=== PATIENT | male | born 1950 | race Caucasian/White ===

== ENCOUNTER 2019-05-20 01:30 | Emergency (ER) | payer MEDICARE, BC ==
--- NOTE | 2019-05-20 01:32 | ER Report ---
History and Physical Time Seen By MD: 01:28 HPI/ROS CHIEF COMPLAINT: Chest tightness, mild shortness of breath HISTORY OF PRESENT ILLNESS: 68-year-old male visiting from [place]. He [place] he's been here for 5 weeks. He has a history of paroxysmal atrial fibrillation. He was [place] in [place] today. Tonight after history drinks. He went into atrial fibrillation. Just before 9 PM. Patient does have a history of atrial fibrillation and cardioversion. Patient takes no blood thinners. REVIEW OF SYSTEMS: Respiratory: No cough, no dyspnea. Cardiovascular: No chest pain, no palpitations. Gastrointestinal: No vomiting, no abdominal pain. Musculoskeletal: No back pain. Allergies: Coded Allergies: No Known Drug Allergies (Unverified , 05/20/19) Home Meds Reported Medications Aspirin (ASPIRIN) 325 Mg Tablet, 325 MG PO Q4-6H PRN for CHEST PAIN, TAB 05/20/19 Metoprolol Succinate (METOPROLOL SUCCINATE) 25 Mg Tab.er.24h, 1 TAB PO QDAY, TAB 05/20/19 Reviewed Nurses Notes: Yes Old Medical Records Reviewed: Yes Constitutional Vital Sign - Last 24 Hours 05/20/19 05/20/19 05/20/19 05/20/19 01:30 01:30 01:31 01:31 Pulse ? B/P (MAP) 88/78 (81) 88/78 (81) 05/20/19 05/20/19 05/20/19 05/20/19 01:33 01:34 01:34 01:35 Temp 97.9 Pulse 124 87 Resp 20 12 B/P (MAP) 88/78 99/70 (80) 99/70 (80) Pulse Ox 89 91 O2 Delivery Room Air 05/20/19 05/20/19 05/20/19 05/20/19 01:40 01:45 01:45 01:50 Pulse 107 133 Resp 7 15 B/P (MAP) 95/69 (78) 95/69 (78) Pulse Ox 91 05/20/19 05/20/19 05/20/19 05/20/19 01:55 02:00 02:00 02:01 Pulse 91 99 99 Resp 7 14 14 B/P (MAP) 56/47 (50) 56/47 (50) 96/71 (79) Pulse Ox 91 90 90 7/19/19 7/19/19 7/19/19 7/19/19 02:01 02:05 02:10 02:17 Pulse 100 110 Resp 16 11 B/P (MAP) 96/71 (79) 109/70 (83) Pulse Ox 88 90 05/20/19 05/20/19/05/20/19 02:17 02:20 02:25 02:25 Pulse 97 83 Resp 27 7 B/P (MAP) 109/70 (83) 111/80 (90) 111/80 (90) Pulse Ox 91 94 05/20/19 05/20/19 05/20/19 05/20/19 02:27 02:30 02:30 02:31 Pulse 66 66 Resp 20 20 B/P (MAP) 88/65 (73) 88/65 (73) 86/73 (77) Pulse Ox 97 97 O2 Flow Rate 5.0 05/20/19 05/20/19 05/20/19 05/20/19 02:31 02:35 02:35 02:40 Pulse 65 63 Resp 9 12 B/P (MAP) 86/73 (77) 96/68 (77) 96/68 (77) 94/67 (76) Pulse Ox 93 95 05/20/19 05/20/19 05/20/19 05/20/19 02:40 02:45 02:45 02:50 Pulse 60 Resp 11 B/P (MAP) 94/67 (76) 95/69 (78) 95/69 (78) 94/69 (77) Pulse Ox 96 05/20/19 05/20/19 05/20/19 05/20/19 02:50 02:55 02:55 03:00 Pulse 60 59 60 Resp 27 28 24 B/P (MAP) 94/69 (77) 95/69 (78) 95/69 (78) 97/75 (82) Pulse Ox 95 95 97 05/20/19 05/20/19 05/20/19 05/20/19 03:00 03:05 03:05 03:10 Pulse 60 59 Resp 24 28 B/P (MAP) 97/75 (82) 96/71 (79) 96/71 (79) 99/73 (82) Pulse Ox 97 91 7/19/19 05/20/19 05/20/19 05/20/19 03:10 03:15 03:15 03:20 Pulse 63 58 Resp 26 26 B/P (MAP) 99/73 (82) 97/71 (80) 97/71 (80) 96/69 (78) Pulse Ox 94 87 05/20/19 05/20/19 05/20/19 03:20 03:25 03:25 Pulse 59 Resp 9 B/P (MAP) 96/69 (78) 103/74 (84) 103/74 (84) Pulse Ox 90 Physical Exam General Appearance: The patient is alert, has no immediate need for airway protection and no current signs of toxicity. Vital signs stable, borderline hypotension, pulse ox normal, tachycardia to the 140s, rhythm strip shows a irregular rhythm consistent with fibrillation HEENT: Pupils equal and round no injection. Oropharynx without redness or exudate Respiratory: Chest is non tender, lungs are clear to auscultation. No chest wall tenderness, wheezing or rails Cardiac: irregular rate and rhythm , no murmur Gastrointestinal: Abdomen is soft and non tender, no masses, bowel sounds normal. Musculoskeletal: Neck: Neck is supple and non tender. Extremities have full range of motion and are non tender. Skin: No rashes or lesions. DIFFERENTIAL DIAGNOSIS: After history and physical exam differential diagnosis was considered for chest pain including but not limited to myocardial ischemia, pericarditis pulmonary embolus, chest wall pain, pleural inflammation and pulmonary infectious causes. Medical Decision Making Data Points Result Diagram: 05/20/19 0135 05/20/19 0135 Laboratory Hematology Test 05/20/19 01:35 White Blood Count 6.5 k/uL (4.5-11.0) Red Blood Count 4.68 M/uL (4.00-5.60) Hemoglobin 14.6 g/dL (14.0-18.0) Hematocrit 43.2 % (42.0-52.0) Mean Corpuscular Volume 92.4 fL (80.0-96.0) Mean Corpuscular Hemoglobin 31.2 pg (26.0-33.0) Mean Corpuscular Hemoglobin Concent 33.7 g/dL (32.0-36.0) Red Cell Distribution Width 13.4 % (11.5-14.5) Platelet Count 348 K/uL (150-450) Mean Platelet Volume 7.6 fL (7.2-11.1) Neutrophils (%) (Auto) 54.3 % (39.4-72.5) Lymphocytes (%) (Auto) 31.6 % (17.6-49.6) Monocytes (%) (Auto) 10.0 % (4.1-12.4) Eosinophils (%) (Auto) 3.1 % (0.4-6.7) Basophils (%) (Auto) 1.0 % (0.3-1.4) Nucleated RBC Relative Count (auto) 0.0 /100WBC Neutrophils # (Auto) 3.5 K/uL (2.0-7.4) Lymphocytes # (Auto) 2.1 K/uL (1.3-3.6) Monocytes # (Auto) 0.7 K/uL (0.3-1.0) Eosinophils # (Auto) 0.2 K/uL (0.0-0.5) Basophils # (Auto) 0.1 K/uL (0.0-0.1) Nucleated RBC Absolute Count (auto) 0.00 K/uL Chemistry Test 05/20/19 01:35 Sodium Level 136 mmol/L (137-145) Potassium Level 4.0 mmol/L (3.5-5.0) Chloride Level 104 mmol/L (98-107) Carbon Dioxide Level 24 mmol/L (22-30) Blood Urea Nitrogen 34 mg/dl (9-21) Creatinine 1.10 mg/dl (0.66-1.25) Glomerular Filtration Rate Calc > 60.0 Random Glucose 113 mg/dl (75-110) Calcium Level 9.7 mg/dl (8.4-10.2) Total Bilirubin 0.3 mg/dl (0.2-1.3) Aspartate Amino Transf (AST/SGOT) 29 U/L (0-35) Alanine Aminotransferase (ALT/SGPT) 46 U/L (0-56) Alkaline Phosphatase 73 U/L (0-126) Troponin I < 0.012 ng/ml B-Type Natriuretic Peptide 181 pg/ml (0-100) Total Protein 7.1 g/dl (6.3-8.2) Albumin 4.2 g/dl (3.5-5.0) EKG/Imaging EKG Interpretation 12 lead EK 137 Rhythm: Atrial fibrillation rate 1:30 Gepp: normal QRS: Right bundle branch block pattern ST segments: normal, no old EKGs for comparison 12 lead EK Rhythm: Normal sinus rhythm with 65 bpm Gepp: normal QRS: Right bundle branch block pattern persist ST segments: normal Imaging X-ray: Single view portable chest x-ray was obtained. I viewed the images myself on the PACS system. My interpretation of the images is: Elevation of the right hemidiaphragm, otherwise no infiltrate or effusion, no old chest x-rays for comparison. The radiologist interpretation had no clinically significant variation from this interpretation. ED Course/Re-evaluation Clinical Indication for ER IV: Hydration, IV Access ED Course Patient was admitted to an examination room. H&P was done. The differential diagnosis was considered. On clinical Procedure: Procedural sedation. A pre-sedation evaluation was completed on the patient at 0220. Patient is an appropriate candidate for procedural sedation. The risks of the sedation were discussed with the patient. A time out was completed. The patient was reevaluated immediately prior to initiation of sedation. The patient was sedated with propofol 100 mg. The patient was monitored with continuous pulse oximetry and drug clerk. There were no complications and no significant hypoxemia. I remained at the bedside for the sedation. The total time I spent in the procedural sedation was 20 minutes. Post sedation evaluation: Patient was alert and cooperative, hemodynamically stable with appropriate respiratory status, temperature and pain control without ongoing nausea and vomiting. Procedure: Elective electrical cardioversion. The patient was electively electrically cardioverted for atrial fibrillation. The patient was on a continuous canvas repairer, with airway equipment at the bedside. The patient was on continuous pulse oximetry. The cardioversion was attempted with 50 joules biphasic current. The cardioversion was successful. The patient tolerated the procedure well with no complications. The procedure was performed by myself. Decision to Disposition Date: May 20, 2019 Decision to Disposition Time: 02:48 Depart Departure Latest Vital Signs Vital Signs Date Time Temp Pulse Resp B/P (MAP) Pulse Ox O2 Delivery O2 Flow Rate FiO2 05/20/19 03:25 59 9 103/74 (84) 90 05/20/19 02:27 5.0 05/20/19 01:33 97.9 Room Air Impression: Primary Impression: Atrial fibrillation Additional Impressions: Hypotension Chest tightness Atrial fibrillation status post cardioversion Condition: Improved Disposition: HOME OR SELF-CARE Patient Instructions: A-fib (Atrial Fibrillation) (ED) Additional Instructions: Follow-up with your primary care doctor, returning home to [place] Problem Qualifiers Primary Impression: Atrial fibrillation Atrial fibrillation type: paroxysmal Qualified Codes: I48.0 - Paroxysmal atrial fibrillation Additional Impressions: Hypotension Hypotension type: unspecified hypotension type Qualified Codes: I95.9 - Hypotension, unspecified JARAD DEL CID DO May 20, 2019 01:32
[2019-05-20] MEDS ORDERED: ASPIRIN 81 MG CHEW PO ONE (01:40)
[2019-05-20] MEDS ORDERED: ASPI-757 PO (01:45)
[2019-05-20] MEDS ORDERED: METO25TA23 PO (01:45)
[2019-05-20] MEDS ORDERED: DILTIAZEM 5 MG/ML 5ML IVPUSH IVP ONE ×2 (01:50→02:10)
[2019-05-20] MEDS ORDERED: NS(*) 0.9% 1000 ML BAG 1,000 ML IV ONE (01:50)
[2019-05-20 01:54] LABS: PLATELET COUNT, AUTOMATED 348 K/uL (150-450)
--- NOTE | 2019-05-20 01:56 | EKG ---
FACILITY: [facility] PATIENT NAME: AMAYA LORENZ : [id number] MR: [id number] V: [id number] EXAM DATE: ORDERING PHYSICIAN: JARAD DEL CID TECHNOLOGIST: HERI Test Reason : CHEST TIGHTNESS,AFIB Blood Pressure : / mmHG Vent. Rate : 130 BPM Atrial Rate : 078 BPM P-R Int : 000 ms QRS Dur : 138 ms QT Int : 354 ms P-R-T Axes : 000 -51 027 degrees QTc Int : 520 ms Atrial fibrillation with RVR Right bundle branch block Abnormal ECG No previous ECGs available Confirmed by Freddy Zapata ([id number]) on 05/20/2019 7:38:12 AM Referred By: Confirmed By:Freddy Beasley
[2019-05-20] MEDS ORDERED: PROPOFOL EMUL 10MG/ML 20 ML VL IV ONE (02:25)
--- NOTE | 2019-05-20 02:30 | RADIOLOGY IMAGING REPORT ---
FACILITY: [facility] PATIENT NAME: Yosi Gallego : 1950 MR: [id number] V: [id number] EXAM DATE: ORDERING PHYSICIAN: JARAD DEL CID TECHNOLOGIST: Location: [facility] - [place] Patient: Yosi Gallego : 1950 Visit/Account:[id number] Date of Sevice: 05/20/2019 EXAMINATION: Portable AP Chest 05/20/2019 1:36 AM HISTORY: Chest Pain COMPARISON: None FINDINGS: Cardiomediastinal contours: Normal heart size. Atherosclerotic aorta. Lungs and pleura: Vasculature is normal. Minimal linear subsegmental atelectasis or scarring in the l ower lungs. Bones/soft tissues: Elevation of right hemidiaphragm. Old posterolateral left fifth and sixth rib fra ctures. Cardiac leads are present. IMPRESSION: 1. Elevation of the right hemidiaphragm. 2. Minimal lower lung subsegmental atelectasis or scarring. Report Dictated By: Antonio Cohen MD at 05/20/2019 2:22 AM Report E-Signed By: Antonio Cohen MD at 05/20/2019 2:23 AM WSN:[id number]
--- NOTE | 2019-05-20 02:48 | EKG ---
FACILITY: [facility] PATIENT NAME: AMAYA LORENZ : [id number] MR: [id number] V: [id number] EXAM DATE: ORDERING PHYSICIAN: JARAD DEL CID TECHNOLOGIST: HERI Finch Reason : POST CARDIOVERSION Blood Pressure : / mmHG Vent. Rate : 065 BPM Atrial Rate : 065 BPM P-R Int : 152 ms QRS Dur : 150 ms QT Int : 460 ms P-R-T Axes : 025 -45 010 degrees QTc Int : 478 ms Normal sinus rhythm Right bundle branch block Left anterior fascicular block Bifascicular block Abnormal ECG When compared with ECG of 20-MAY-2019 01:36, Sinus rhythm has replaced Atrial fibrillation Vent. rate has decreased BY 65 BPM Confirmed by Freddy Zapata ([id number]) on 05/20/2019 7:44:21 AM Referred By: Confirmed By:Freddy Beasley
[2019-05-20 03:25] VITALS: BP 103/74
== END 2019-05-20 03:38 | disposition home or self-care (01) ==
LOC: ER 01:55
DX: I48.0 Paroxysmal atrial fibrillation (principal); I95.9 Hypotension, unspecified
CPT/HCPCS: 71045; 83880; 84484; 85025; 92960; 93005; 96374; 99285; J2704; J3490; J7030; 82040; 82247; 82310; 82374; 82435; 82565; 82947; 84075; 84132; 84155; 84295; 84450; 84460; 84520